=== PATIENT | female | born 1995 | race Caucasian/White ===

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

== ENCOUNTER 2020-08-21 01:27 | Outpatient (CLI) | payer OTHER ==
[~2020-08-21 01:27] MED LIST changes: +ASPIRIN CHEWABL81 MG PO; +COLACE 100MG C100 MG PO; +DOK100 MG PO; +FEOSOL325 MG PO; +MACROBID 100 M100 MG PO; +OMNICEF 300 MG300 MG PO; +ONDANSETRON ODT4 MG PO; +PRENATAL VITAMIN PO; +PROTONIX 40 MG40 M1 PO; +PROVENTIL HFA6.7 GM INH; +ZANTAC 150 MG150 MG GT; +ZITHROMAX250 MG PO; +ZOFRAN4 MG PO
== END 2020-08-21 03:05 | disposition home or self-care (01) ==
LOC: GENOP 01:27
DX: O46.92 Antepartum hemorrhage, unspecified, second trimester (principal); Z3A.22 22 weeks gestation of pregnancy
CPT/HCPCS: G0463

== ENCOUNTER → 2020-09-11 | Outpatient (CLI) | payer OTHER | LOC: GENOP 21:23 | DX: O36.8190 Decreased fetal movements, unspecified trimester, not applicable or unspecified (principal); Z3A.00 Weeks of gestation of pregnancy not specified | CPT/HCPCS: 59025; 96360 ==

== ENCOUNTER 2020-09-22 04:59 | Observation (INO) | payer OTHER | END 2020-09-23 09:43 | disposition home or self-care (01) | LOC: GENOP 04:59 → OB 17:23 | PROVIDERS: ADMIT Obstetrics & Gynecology | DX: O47.02 False labor before 37 completed weeks of gestation, second trimester (principal); O30.042 Twin pregnancy, dichorionic/diamniotic, second trimester; O99.352 Diseases of the nervous system complicating pregnancy, second trimester; G43.909 Migraine, unspecified, not intractable, without status migrainosus; O99.012 Anemia complicating pregnancy, second trimester; D64.9 Anemia, unspecified; O99.342 Other mental disorders complicating pregnancy, second trimester; F31.9 Bipolar disorder, unspecified; F41.9 Anxiety disorder, unspecified; Z87.440 Personal history of urinary (tract) infections; Z3A.27 27 weeks gestation of pregnancy; Z20.822 Contact with and (suspected) exposure to COVID-19 | CPT/HCPCS: 59025; 81001; 82731; 96360; 96361; 96372; G0378; J0702; U0002 ==

== ENCOUNTER 2020-10-06 15:18 | Emergency (ER) | payer OTHER | END 2020-10-06 18:30 | disposition left against medical advice (07) | LOC: ER1 15:18 | DX: O9A.213 Injury, poisoning and certain other consequences of external causes complicating pregnancy, third trimester (principal); M54.9 Dorsalgia, unspecified; M54.2 Cervicalgia; M25.551 Pain in right hip; M25.552 Pain in left hip; Z3A.29 29 weeks gestation of pregnancy; V49.40XA Driver injured in collision with unspecified motor vehicles in traffic accident, initial encounter; Y92.410 Unspecified street and highway as the place of occurrence of the external cause | CPT/HCPCS: 72125; 99283 ==

== ENCOUNTER 2020-10-31 11:29 | Outpatient (CLI) | payer OTHER | END 2020-10-31 13:17 | disposition home or self-care (01) | LOC: GENOP 11:29 | DX: O99.891 Other specified diseases and conditions complicating pregnancy (principal); R10.2 Pelvic and perineal pain; M54.5 Low back pain; O26.853 Spotting complicating pregnancy, third trimester; O36.8132 Decreased fetal movements, third trimester, fetus 2; O30.003 Twin pregnancy, unspecified number of placenta and unspecified number of amniotic sacs, third trimester; O99.353 Diseases of the nervous system complicating pregnancy, third trimester; G43.909 Migraine, unspecified, not intractable, without status migrainosus; O99.343 Other mental disorders complicating pregnancy, third trimester; F41.9 Anxiety disorder, unspecified; F32.9 Major depressive disorder, single episode, unspecified; O99.213 Obesity complicating pregnancy, third trimester; E66.9 Obesity, unspecified; Z87.891 Personal history of nicotine dependence; Z3A.33 33 weeks gestation of pregnancy | CPT/HCPCS: 81001; G0463 ==

== ENCOUNTER → 2020-11-03 | Outpatient (CLI) | payer OTHER ==
[~2020-11-03] MED LIST changes: +AMOX TR-K CLV1 EAC1 PO; +DOCUSATE SODIU100 MG PO; +FERROUS SULFAT325 M2 PO; +HYDROCODON-ACE1 EAC4 PO; +TUMS200 MG PO
== END ==
LOC: GENOP 01:37
DX: O47.03 False labor before 37 completed weeks of gestation, third trimester (principal); O30.003 Twin pregnancy, unspecified number of placenta and unspecified number of amniotic sacs, third trimester; O99.343 Other mental disorders complicating pregnancy, third trimester; F41.9 Anxiety disorder, unspecified; F32.9 Major depressive disorder, single episode, unspecified; O99.353 Diseases of the nervous system complicating pregnancy, third trimester; G43.909 Migraine, unspecified, not intractable, without status migrainosus; O99.213 Obesity complicating pregnancy, third trimester; E66.9 Obesity, unspecified; Z87.891 Personal history of nicotine dependence; Z3A.33 33 weeks gestation of pregnancy
CPT/HCPCS: 81001; 82731; G0463

== ENCOUNTER → 2020-11-27 | Outpatient (CLI) | payer OTHER ==
[2020-11-27 14:59] LABS: HEMOGLOBIN 9.5 gm/dl (12.3-15.3); RED BLOOD COUNT 3.87 M/UL (4.00-5.10); WHITE BLOOD COUNT 10.3 K/UL (4.5-11.0)
== END ==
LOC: GENOP 13:24
PROVIDERS: Obstetrics & Gynecology
DX: Z01.812 Encounter for preprocedural laboratory examination (principal); O32.1XX0 Maternal care for breech presentation, not applicable or unspecified
CPT/HCPCS: 36415; 85025; J7120

== ENCOUNTER 2020-11-28 05:37 | Inpatient (IN) | payer OTHER ==
[~2020-11-28] VITALS: Ht 165.1 cm; Wt 99.8 kg
[~2020-11-28 05:37] MED LIST changes: -AMOX TR-K CLV1 EAC1 PO; -DOCUSATE SODIU100 MG PO; -FERROUS SULFAT325 M2 PO; -HYDROCODON-ACE1 EAC4 PO; -TUMS200 MG PO
[2020-11-28] MEDS ORDERED: AMOX TR-K CLV1 EAC1 PO (07:12)
[2020-11-28] MEDS ORDERED: TUMS200 MG PO (07:12)
[2020-11-28] MEDS ORDERED: IBUPROFEN600 MG PO (09:10)
[2020-11-28] MEDS ORDERED: DOCUSATE SODIU100 MG PO (09:10)
[2020-11-28] MEDS ORDERED: HYDROCODON-ACE1 EAC4 PO (09:10)
[2020-11-28] MEDS ORDERED: FERROUS SULFAT325 M2 PO (09:10)
== END 2020-11-30 14:23 | disposition home or self-care (01) | DRG 787 ==
LOC: OB 05:37
PROVIDERS: ADMIT Obstetrics & Gynecology
PROC: 4A1HXCZ Monitoring of Products of Conception, Cardiac Rate, External Approach (ICD-10-PCS; 2020-11-28)
PROC: 10D00Z1 Extraction of Products of Conception, Low, Open Approach (ICD-10-PCS; principal; 2020-11-28 07:30)
DX: O30.043 Twin pregnancy, dichorionic/diamniotic, third trimester (principal); O99.354 Diseases of the nervous system complicating childbirth; Z3A.37 37 weeks gestation of pregnancy; Z37.2 Twins, both liveborn; Z20.822 Contact with and (suspected) exposure to COVID-19; F41.9 Anxiety disorder, unspecified; F32.9 Major depressive disorder, single episode, unspecified; O99.344 Other mental disorders complicating childbirth; Z37.0 Single live birth; O32.1XX1 Maternal care for breech presentation, fetus 1; O32.2XX1 Maternal care for transverse and oblique lie, fetus 1; G43.909 Migraine, unspecified, not intractable, without status migrainosus
CPT/HCPCS: 36415; 81001; 82800; 85014; 85018; 85025; 90471; 90715; C9113; J0690; J1170; J1650; J1885; J2274; J2370; J2405; J2590; J3010; J7120

== ENCOUNTER 2021-03-09 17:22 | Emergency (ER) | payer OTHER ==
[~2021-03-09 17:22] MED LIST changes: +AMOX TR-K CLV1 EAC1 PO; +DOCUSATE SODIU100 MG PO; +FERROUS SULFAT325 M2 PO; +HYDROCODON-ACE1 EAC4 PO; +TUMS200 MG PO
[2021-03-09 18:27] LABS: HEMOGLOBIN 11.3 gm/dl (12.3-15.3); RED BLOOD COUNT 4.5 M/UL (4.00-5.10); WHITE BLOOD COUNT 10.4 K/UL (4.5-11.0)
[2021-03-09 18:41] LABS: BUN/CREATININE RATIO 12 (0-10)
[2021-03-09] MEDS ORDERED: BACTRIM DS TAB1 EACH PO (19:46)
== END 2021-03-09 21:00 | disposition home or self-care (01) ==
LOC: ER1 17:22
PROVIDERS: Emergency Medicine
DX: R31.9 Hematuria, unspecified (principal); F17.290 Nicotine dependence, other tobacco product, uncomplicated
CPT/HCPCS: 80048; 81001; 84703; 85025; 99284